=== PATIENT | male | born 1970 | race Caucasian/White ===

== ENCOUNTER 2023-08-08 11:57 | Emergency (ER) | payer OTHER, SELFPAY ==
[2023-08-08 11:58] VITALS: PULSE 0; PULSE 102; TEMP 32.2; O2SAT 0
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
[2023-08-08 13:05] VITALS: BP 0/0; PULSE 0; RESP 0; TEMP -17.7; TEMP 0; O2SAT 0
--- NOTE | 2023-08-08 15:34 | ED.RN ---
[address] DAUGHTER MIRI P [phone]
== END 2023-08-08 15:30 ==
PROVIDERS: Emergency Provider Emergency Medicine; Visit Provider Emergency Medicine
DX: I46.9 Cardiac arrest, cause unspecified (principal); E66.9 Obesity, unspecified
CPT/HCPCS: 31500; 92950; 99291; J7030